=== PATIENT | male | born 1960 ===

== ENCOUNTER 2017-09-28 20:11 | Inpatient (IN) ==
[2017-09-28] MEDS ORDERED: ONDANSETRON 4 MG/2 ML VIAL IV PRN (22:54)
[2017-09-28] MEDS ORDERED: ALBUTEROL 2.5 MG/3 ML NEB RESP TX PRN (23:00)
[2017-09-28] MEDS ORDERED: guaiFENesin/CODEINE 5 ML LIQUID PO PRN (23:00)
[2017-09-28] MEDS ORDERED: LEVOFLOXACIN INJ 750 MG in PREMIX 1 EACH IV ONE (23:30)
[2017-09-28] MEDS: guaiFENesin/DM ER 600-30 MG TABLET PO SCH (23:50)
[2017-09-29] MEDS: ALBUTEROL/IPRATROPIUM 3 ML NEB RESP TX SCH ×4 (01:17→20:08)
[2017-09-29] MEDS: BENZONATATE 100 MG CAPSULE PO PRN ×2 (01:33→08:58)
[2017-09-29 03:47] LABS: Basophils % 0.2 % (0.0-0.8); Eosinophils # 0.1 10*3/uL (0.0-0.87); Eosinophils % 0.6 % (0.00-10.9); Hematocrit 31.7 VOL% (42.0-52.0); Hemoglobin 9.9 GM/DL (14.0-18.0); Immature Granulocytes % 0.5 %; Immature Granulocytes Absolute 0.04 #; Lymphocytes # 0.7 10*3/uL (1.4-4.0); Mean Corpuscular HGB Conc 31.2 GM/DL (32-36); Mean Corpuscular Hemoglobin 30 PG (27-34); Mean Corpuscular Volume 96.1 FL (87-102); Mean Platelet Volume 10.4 FL (9.6-12.0); Monocytes # 0.7 10*3/uL (0.11-0.8); Monocytes % 8.3 % (1.7-12.7); Neutrophils # 6.9 10*3/uL (1.4-7.4); Neutrophils % 82.4 % (38.7-73.9); Platelet Count 215 T/CUMM (130-400); Red Cell Distribution Width 13.9 % (9.3-17.3); White Blood Count 8.3 T/CUMM (4-12)
[2017-09-29 04:14] LABS: Albumin 2.8 G/DL (3.4-5.0); Bilirubin,Total 0.8 MG/DL (0.2-1.0); Calcium 8.3 MG/DL (8.5-10.1); Osmolality,Calculated 280.7 MOS/KG (273-304); Potassium 3.1 MMOL/L (3.5-5.1); Total Protein 8.4 G/DL (6.4-8.3)
[2017-09-29] MEDS: ACETAMINOPHEN 325 MG TABLET PO PRN ×2 (05:35→16:19)
[2017-09-29] MEDS: guaiFENesin/DM ER 600-30 MG TABLET PO SCH ×2 (08:58→20:53)
[2017-09-29] MEDS: POTASSIUM CHLORIDE 20 MEQ TABLET PO PRN ×4 (10:17→19:49)
[2017-09-29] MEDS ORDERED: GLUCAGON 1 MG VIAL IM PRN (12:04)
[2017-09-29] MEDS ORDERED: DEXTROSE 50% 25 GM/50 ML VIAL IV PRN (12:04)
[2017-09-29] MEDS: methylPREDNISolone SOD SUC 40 MG/1 ML VIAL IV SCH ×2 (13:03→23:54)
[2017-09-29] MEDS: INSULIN REGULAR 100 UNIT/ML SUBCUT SCH ×2 (16:15→20:53)
[2017-09-29] MEDS ORDERED: CALCIUM ACETATE 667 MG CAPSULE PO PRN (20:47)
[2017-09-29] MEDS: amLODIPine 5 MG TABLET PO SCH (20:59)
[2017-09-30] MEDS: ALBUTEROL/IPRATROPIUM 3 ML NEB RESP TX SCH ×4 (01:41→19:02)
[2017-09-30] MEDS: CALCIUM ACETATE 667 MG CAPSULE PO SCH ×3 (08:39→16:57)
[2017-09-30] MEDS: guaiFENesin/DM ER 600-30 MG TABLET PO SCH ×2 (08:39→21:09)
[2017-09-30] MEDS: INSULIN REGULAR 100 UNIT/ML SUBCUT SCH ×4 (08:40→21:09)
[2017-09-30] MEDS: amLODIPine 5 MG TABLET PO SCH ×2 (08:40→21:09)
[2017-09-30] MEDS: FLUCONAZOLE INJ 100 MG in IV BAG 1 EACH IV SCH (11:50)
[2017-09-30] MEDS: methylPREDNISolone SOD SUC 40 MG/1 ML VIAL IV SCH (11:53)
[2017-09-30] MEDS: BENZONATATE 100 MG CAPSULE PO PRN (21:12)
[2017-10-01] MEDS: ALBUTEROL/IPRATROPIUM 3 ML NEB RESP TX SCH ×4 (00:06→19:37)
[2017-10-01] MEDS: methylPREDNISolone SOD SUC 40 MG/1 ML VIAL IV SCH ×2 (00:26→11:30)
[2017-10-01 05:18] LABS: Basophils % 0.1 % (0.0-0.8); Hematocrit 32.9 VOL% (42.0-52.0); Hemoglobin 10.7 GM/DL (14.0-18.0); Immature Granulocytes % 2.6 %; Immature Granulocytes Absolute 0.35 #; Lymphocytes # 0.6 10*3/uL (1.4-4.0); Lymphocytes % 4.7 % (21.2-54.2); Mean Corpuscular HGB Conc 32.5 GM/DL (32-36); Mean Corpuscular Hemoglobin 30 PG (27-34); Mean Corpuscular Volume 92.4 FL (87-102); Monocytes # 0.3 10*3/uL (0.11-0.8); Monocytes % 2.6 % (1.7-12.7); NRBC # 0.03 10*3/uL; Platelet Count 323 T/CUMM (130-400); Red Blood Count 3.56 MC/CUMM (3.8-5.5); Red Cell Distribution Width 14.2 % (9.3-17.3); White Blood Count 13.3 T/CUMM (4-12)
[2017-10-01 05:40] LABS: Albumin 2.8 G/DL (3.4-5.0); Osmolality,Calculated 295.1 MOS/KG (273-304); Potassium 4.4 MMOL/L (3.5-5.1); Total Protein 8.4 G/DL (6.4-8.3)
[2017-10-01 05:55] LABS: Band Neutrophils 3 % (0-10); Hypochromasia Slight; Lymphocytes 4 % (20-55); Platelet Estimate Adequate; Segmented Neutrophils 92 % (50-85); Total Cells Counted 100
[2017-10-01] MEDS: INSULIN REGULAR 100 UNIT/ML SUBCUT SCH ×4 (09:18→21:06)
[2017-10-01] MEDS: guaiFENesin/DM ER 600-30 MG TABLET PO SCH ×2 (09:19→21:06)
[2017-10-01] MEDS: CALCIUM ACETATE 667 MG CAPSULE PO SCH ×3 (09:19→17:10)
[2017-10-01] MEDS: amLODIPine 5 MG TABLET PO SCH ×2 (09:20→21:06)
[2017-10-01] MEDS: BENZONATATE 100 MG CAPSULE PO PRN (09:20)
[2017-10-01] MEDS: FLUCONAZOLE INJ 100 MG in IV BAG 1 EACH IV SCH (10:35)
[2017-10-01] MEDS ORDERED: LEVOFLOXACIN INJ 500 MG in PREMIX 1 EACH IV SCH (21:00)
[2017-10-02] MEDS: methylPREDNISolone SOD SUC 40 MG/1 ML VIAL IV SCH ×2 (00:40→12:36)
[2017-10-02] MEDS: ALBUTEROL/IPRATROPIUM 3 ML NEB RESP TX SCH ×2 (00:56→07:33)
[2017-10-02 05:58] LABS: Basophils % 0.3 % (0.0-0.8); Hematocrit 35.2 VOL% (42.0-52.0); Hemoglobin 11.2 GM/DL (14.0-18.0); Immature Granulocytes % 7.8 %; Immature Granulocytes Absolute 0.87 #; Lymphocytes # 0.8 10*3/uL (1.4-4.0); Lymphocytes % 6.9 % (21.2-54.2); Mean Corpuscular HGB Conc 31.8 GM/DL (32-36); Mean Corpuscular Hemoglobin 30 PG (27-34); Mean Corpuscular Volume 94.1 FL (87-102); Mean Platelet Volume 9.7 FL (9.6-12.0); Monocytes # 0.4 10*3/uL (0.11-0.8); Monocytes % 3.8 % (1.7-12.7); NRBC # 0.03 10*3/uL; Neutrophils # 9.1 10*3/uL (1.4-7.4); Neutrophils % 81.2 % (38.7-73.9); Platelet Count 361 T/CUMM (130-400); Red Blood Count 3.74 MC/CUMM (3.8-5.5); Red Cell Distribution Width 14.2 % (9.3-17.3); White Blood Count 11.2 T/CUMM (4-12)
[2017-10-02 06:12] LABS: Calcium 8.7 MG/DL (8.5-10.1); Osmolality,Calculated 294.8 MOS/KG (273-304); Potassium 4.7 MMOL/L (3.5-5.1)
[2017-10-02 06:13] LABS: Calcium 8.6 MG/DL (8.5-10.1); Osmolality,Calculated 295.8 MOS/KG (273-304); Potassium 4.7 MMOL/L (3.5-5.1)
[2017-10-02 06:28] LABS: Band Neutrophils 3 % (0-10); Hypochromasia 1+; Lymphocytes 6 % (20-55); Platelet Estimate Adequate; Segmented Neutrophils 86 % (50-85); Total Cells Counted 100
[2017-10-02] MEDS: INSULIN REGULAR 100 UNIT/ML SUBCUT SCH ×2 (08:07→12:34)
[2017-10-02] MEDS ORDERED: LACTULOSE 20 GM/30 ML UDCUP PO PRN (09:17)
[2017-10-02] MEDS: CALCIUM ACETATE 667 MG CAPSULE PO SCH ×2 (10:06→12:36)
[2017-10-02] MEDS: guaiFENesin/DM ER 600-30 MG TABLET PO SCH (10:07)
[2017-10-02] MEDS: amLODIPine 5 MG TABLET PO SCH (10:07)
[2017-10-02 11:10] VITALS: BP 156/72
[2017-10-02] MEDS: FLUCONAZOLE INJ 100 MG in IV BAG 1 EACH IV SCH (12:37)
== END 2017-10-02 13:05 | disposition home or self-care (01) | DRG 871 ==
LOC: N.3E 21:26 → SUATTDRO 21:26
PROVIDERS: ADMIT Internal Medicine; ATTEND Internal Medicine Infectious Disease

== ENCOUNTER 2018-04-22 11:43 | Inpatient (IN) ==
[2018-04-22] MEDS ORDERED: ONDANSETRON 4 MG/2 ML VIAL IV STA (12:11)
[2018-04-22 12:36] LABS: Basophils # 0.1 10*3/uL (0.0-0.2); Basophils % 0.7 % (0.0-0.8); Eosinophils # 0.3 10*3/uL (0.0-0.87); Eosinophils % 3.9 % (0.00-10.9); Hematocrit 30.7 VOL% (42.0-52.0); Hemoglobin 9.6 GM/DL (14.0-18.0); Immature Granulocytes % 0.5 %; Immature Granulocytes Absolute 0.04 #; Lymphocytes # 0.6 10*3/uL (1.4-4.0); Lymphocytes % 8.2 % (21.2-54.2); Mean Corpuscular HGB Conc 31.3 GM/DL (32-36); Mean Corpuscular Hemoglobin 30 PG (27-34); Mean Corpuscular Volume 94.8 FL (87-102); Mean Platelet Volume 9.6 FL (9.6-12.0); Monocytes # 0.8 10*3/uL (0.11-0.8); Monocytes % 11.1 % (1.7-12.7); Neutrophils # 5.7 10*3/uL (1.4-7.4); Neutrophils % 75.6 % (38.7-73.9); Platelet Count 228 T/CUMM (130-400); Red Blood Count 3.24 MC/CUMM (3.8-5.5); Red Cell Distribution Width 15.3 % (9.3-17.3); White Blood Count 7.5 T/CUMM (4-12)
[2018-04-22 12:46] LABS: INR 1.1; PT Patient Result 11.9 SECS; Partial Thromboplastin Time 32.4 SECS (0-40)
[2018-04-22 12:56] LABS: ABG Base Excess 2.6 MMOL/L (-2.5-2.5); ABG HCO3 29.5 MMOL/L (20-26); ABG Oxygen Saturation 90.1 % (95-100); ABG PCO2 57.3 MM HG (35-48); ABG PH 7.329 (7.35-7.45); ABG PO2 67.5 MM HG (80-95); ABG TCO2 31.2 MMOL/L (23-27)
[2018-04-22 13:02] LABS: Alanine Aminotransferase 54 U/L (16-61); Albumin 3.1 G/DL (3.4-5.0); Alkaline Phosphatase 158 U/L (45-117); Aspartate Amino Transferase 48 U/L (0-37); Bilirubin,Total < 0.39 MG/DL (0.2-1.0); Blood Urea Nitrogen 69 MG/DL (7-18); Glucose 93 MG/DL (74-106); Osmolality,Calculated 296.5 MOS/KG (273-304); Potassium 4.8 MMOL/L (3.5-5.1); Sodium 139 MMOL/L (136-145); Total Protein 7.8 G/DL (6.4-8.3)
[2018-04-22] MEDS ORDERED: ALBUTEROL 2.5 MG/3 ML NEB RESP TX STA (13:15)
[2018-04-22] MEDS ORDERED: NITROGLYCERIN 2% OINT 1 INCH/GM PACK TOP STA (13:24)
[2018-04-22] MEDS ORDERED: PROMETHAZINE 25 MG/1 ML VIAL IM PRN (14:03)
[2018-04-22] MEDS ORDERED: DEXTROSE 50% 25 GM/50 ML VIAL IV PRN (14:03)
[2018-04-22] MEDS ORDERED: ONDANSETRON 4 MG/2 ML VIAL IV PRN (14:03)
[2018-04-22] MEDS ORDERED: GLUCAGON 1 MG VIAL IM PRN (14:03)
[2018-04-22] MEDS ORDERED: NITROGLYCERIN SL 0.4 MG TABLET SL PRN (14:06)
[2018-04-22] MEDS ORDERED: MECLIZINE 25 MG TABLET PO PRN (14:06)
[2018-04-22] MEDS ORDERED: CALCIUM ACETATE 667 MG CAPSULE PO PRN (14:06)
[2018-04-22] MEDS ORDERED: PIPERACILLIN/TAZOBACTAM 3,375 MG in SODIUM CHLORIDE 0.9% 100 ML IV STA (16:03)
[2018-04-22] MEDS: INSULIN LISPRO 100 UNIT/ML SUBCUT SCH ×2 (18:08→22:53)
[2018-04-22] MEDS: CALCIUM ACETATE 667 MG CAPSULE PO SCH (18:08)
[2018-04-22] MEDS ORDERED: VANCOMYCIN INJ 1,500 MG in SODIUM CHLORIDE 0.9% 500 ML IV ONE (20:30)
[2018-04-22] MEDS: TICAGRELOR 90 MG TABLET PO SCH (22:33)
[2018-04-22] MEDS: ATORVASTATIN 40 MG TABLET PO SCH (22:33)
[2018-04-22] MEDS: ACETAMINOPHEN 325 MG TABLET PO PRN (22:48)
[2018-04-23 04:57] LABS: Basophils # 0.1 10*3/uL (0.0-0.2); Basophils % 0.6 % (0.0-0.8); Eosinophils # 0.3 10*3/uL (0.0-0.87); Eosinophils % 3.2 % (0.00-10.9); Hematocrit 29.1 VOL% (42.0-52.0); Hemoglobin 8.9 GM/DL (14.0-18.0); Immature Granulocytes % 0.6 %; Immature Granulocytes Absolute 0.05 #; Lymphocytes # 0.7 10*3/uL (1.4-4.0); Lymphocytes % 8.2 % (21.2-54.2); Mean Corpuscular HGB Conc 30.6 GM/DL (32-36); Mean Corpuscular Hemoglobin 29 PG (27-34); Mean Corpuscular Volume 95.7 FL (87-102); Mean Platelet Volume 9.9 FL (9.6-12.0); Monocytes # 0.8 10*3/uL (0.11-0.8); Monocytes % 9.6 % (1.7-12.7); Neutrophils # 6.1 10*3/uL (1.4-7.4); Neutrophils % 77.8 % (38.7-73.9); Platelet Count 210 T/CUMM (130-400); Red Blood Count 3.04 MC/CUMM (3.8-5.5); Red Cell Distribution Width 15.4 % (9.3-17.3); White Blood Count 7.9 T/CUMM (4-12)
[2018-04-23 05:26] LABS: Albumin 2.8 G/DL (3.4-5.0); Bilirubin,Total 0.9 MG/DL (0.2-1.0); Calcium 8.1 MG/DL (8.5-10.1); Osmolality,Calculated 299.4 MOS/KG (273-304); Total Protein 7.8 G/DL (6.4-8.3)
[2018-04-23] MEDS: PIPERACILLIN/TAZOBACTAM 3,375 MG in SODIUM CHLORIDE 0.9% 100 ML IV SCH ×2 (05:48→18:08)
[2018-04-23] MEDS ORDERED: VANCOMYCIN INJ 500 MG in SODIUM CHLORIDE 0.9% 250 ML IV PRN (09:00)
[2018-04-23] MEDS: amLODIPine 10 MG TABLET PO SCH (09:25)
[2018-04-23] MEDS: ASPIRIN EC 81 MG TABLET PO SCH (09:25)
[2018-04-23] MEDS: TICAGRELOR 90 MG TABLET PO SCH ×2 (09:25→21:06)
[2018-04-23] MEDS: INSULIN LISPRO 100 UNIT/ML SUBCUT SCH ×4 (09:25→21:15)
[2018-04-23] MEDS: CALCIUM ACETATE 667 MG CAPSULE PO SCH ×3 (09:26→18:08)
[2018-04-23] MEDS: PANTOPRAZOLE 40 MG TABLET PO SCH (09:26)
[2018-04-23] MEDS: MULTIVITAMIN (CENTRUM) TABLET PO SCH (09:26)
[2018-04-23] MEDS ORDERED: VANCOMYCIN INJ 500 MG in SODIUM CHLORIDE 0.9% 100 ML IV ONE (17:00)
[2018-04-23] MEDS: guaiFENesin/DM ER 600-30 MG TABLET PO SCH ×2 (18:08→21:06)
[2018-04-23] MEDS: ATORVASTATIN 40 MG TABLET PO SCH (21:06)
[2018-04-24] MEDS: PIPERACILLIN/TAZOBACTAM 3,375 MG in SODIUM CHLORIDE 0.9% 100 ML IV SCH ×2 (05:28→18:27)
[2018-04-24] MEDS ORDERED: PROMETHAZINE 25 MG/1 ML VIAL IM ONE (07:30)
[2018-04-24] MEDS ORDERED: MEPERIDINE 50 MG/1 ML VIAL IM ONE (07:30)
[2018-04-24] MEDS ORDERED: MIDAZOLAM 2 MG/2 ML VIAL IV ONE (08:00)
[2018-04-24] MEDS ORDERED: LIDOCAINE 2% 20 ML VIAL RESP TX ONE (08:00)
[2018-04-24] MEDS ORDERED: LIDOCAINE 2% VISCOUS 100 ML BOTTLE SWISH/SPIT ONE (08:00)
[2018-04-24] MEDS ORDERED: LIDOCAINE 1% 20 ML VIAL MISC INJ ONE (08:00)
[2018-04-24] MEDS ORDERED: MIDAZOLAM 2 MG/2 ML VIAL ONE (09:05)
[2018-04-24 12:37] LABS: Basophils # 0.1 10*3/uL (0.0-0.2); Basophils % 0.8 % (0.0-0.8); Eosinophils # 0.2 10*3/uL (0.0-0.87); Eosinophils % 3.3 % (0.00-10.9); Hematocrit 31.2 VOL% (42.0-52.0); Hemoglobin 9.5 GM/DL (14.0-18.0); Immature Granulocytes Absolute 0.06 #; Lymphocytes # 1.2 10*3/uL (1.4-4.0); Lymphocytes % 19.3 % (21.2-54.2); Mean Corpuscular HGB Conc 30.4 GM/DL (32-36); Mean Corpuscular Hemoglobin 30 PG (27-34); Mean Corpuscular Volume 98.1 FL (87-102); Mean Platelet Volume 9.6 FL (9.6-12.0); Monocytes # 0.6 10*3/uL (0.11-0.8); Monocytes % 9.2 % (1.7-12.7); Neutrophils # 4.2 10*3/uL (1.4-7.4); Neutrophils % 66.4 % (38.7-73.9); Platelet Count 196 T/CUMM (130-400); Red Blood Count 3.18 MC/CUMM (3.8-5.5); Red Cell Distribution Width 15.6 % (9.3-17.3); White Blood Count 6.3 T/CUMM (4-12)
[2018-04-24 12:39] LABS: ABG Base Excess -2.4 MMOL/L (-2.5-2.5); ABG HCO3 22.3 MMOL/L (20-26); ABG Oxygen Saturation 93.6 % (95-100); ABG PCO2 67.8 MM HG (35-48); ABG PO2 87.6 MM HG (80-95); ABG TCO2 25.2 MMOL/L (23-27)
[2018-04-24 12:46] LABS: ABG PH 7.205 (7.35-7.45)
[2018-04-24] MEDS ORDERED: FLUMAZENIL 0.5 MG/5 ML VIAL IV ONE ×3 (12:53→13:03)
[2018-04-24 13:03] LABS: Albumin 2.6 G/DL (3.4-5.0); Bilirubin,Total 0.6 MG/DL (0.2-1.0); Calcium 8.2 MG/DL (8.5-10.1); Osmolality,Calculated 294.7 MOS/KG (273-304); Potassium 4.5 MMOL/L (3.5-5.1)
[2018-04-24] MEDS: INSULIN LISPRO 100 UNIT/ML SUBCUT SCH ×3 (14:53→21:41)
[2018-04-24] MEDS: CALCIUM ACETATE 667 MG CAPSULE PO SCH ×2 (14:54→18:27)
[2018-04-24] MEDS: PANTOPRAZOLE 40 MG TABLET PO SCH (16:26)
[2018-04-24] MEDS: ASPIRIN EC 81 MG TABLET PO SCH (16:26)
[2018-04-24] MEDS: TICAGRELOR 90 MG TABLET PO SCH ×2 (16:26→21:42)
[2018-04-24] MEDS: guaiFENesin/DM ER 600-30 MG TABLET PO SCH ×2 (16:29→21:42)
[2018-04-24] MEDS: MULTIVITAMIN (CENTRUM) TABLET PO SCH (16:29)
[2018-04-24] MEDS: amLODIPine 10 MG TABLET PO SCH (18:26)
[2018-04-24] MEDS: ACETAMINOPHEN 325 MG TABLET PO PRN (18:27)
[2018-04-24] MEDS ORDERED: VANCOMYCIN INJ 500 MG in SODIUM CHLORIDE 0.9% 100 ML IV ONE (21:00)
[2018-04-24] MEDS: ATORVASTATIN 40 MG TABLET PO SCH (21:42)
[2018-04-25] MEDS: ACETAMINOPHEN 325 MG TABLET PO PRN ×2 (02:06→14:55)
[2018-04-25] MEDS: PIPERACILLIN/TAZOBACTAM 3,375 MG in SODIUM CHLORIDE 0.9% 100 ML IV SCH ×2 (04:34→16:48)
[2018-04-25 07:39] LABS: Basophils % 0.5 % (0.0-0.8); Eosinophils # 0.3 10*3/uL (0.0-0.87); Eosinophils % 3.9 % (0.00-10.9); Hematocrit 33.3 VOL% (42.0-52.0); Hemoglobin 10.2 GM/DL (14.0-18.0); Immature Granulocytes % 0.6 %; Immature Granulocytes Absolute 0.04 #; Lymphocytes # 0.6 10*3/uL (1.4-4.0); Lymphocytes % 9.6 % (21.2-54.2); Mean Corpuscular HGB Conc 30.6 GM/DL (32-36); Mean Corpuscular Hemoglobin 30 PG (27-34); Mean Corpuscular Volume 96.5 FL (87-102); Mean Platelet Volume 9.4 FL (9.6-12.0); Monocytes # 0.7 10*3/uL (0.11-0.8); Monocytes % 10.2 % (1.7-12.7); Neutrophils # 4.9 10*3/uL (1.4-7.4); Neutrophils % 75.2 % (38.7-73.9); Platelet Count 204 T/CUMM (130-400); Red Blood Count 3.45 MC/CUMM (3.8-5.5); Red Cell Distribution Width 15.9 % (9.3-17.3); White Blood Count 6.5 T/CUMM (4-12)
[2018-04-25 07:47] LABS: ABG Base Excess 6.1 MMOL/L (-2.5-2.5); ABG HCO3 29.9 MMOL/L (20-26); ABG Oxygen Saturation 94.2 % (95-100); ABG PH 7.352 (7.35-7.45); ABG PO2 72.7 MM HG (80-95); ABG TCO2 30.6 MMOL/L (23-27)
[2018-04-25] MEDS ORDERED: ALBUTEROL/IPRATROPIUM 3 ML NEB RESP TX ONE (07:58)
[2018-04-25 08:02] LABS: Albumin 2.7 G/DL (3.4-5.0); Bilirubin,Total 0.6 MG/DL (0.2-1.0); Calcium 8.8 MG/DL (8.5-10.1); Osmolality,Calculated 282.5 MOS/KG (273-304); Potassium 4.4 MMOL/L (3.5-5.1); Total Protein 8.5 G/DL (6.4-8.3)
[2018-04-25] MEDS: MULTIVITAMIN (CENTRUM) TABLET PO SCH (08:14)
[2018-04-25] MEDS: TICAGRELOR 90 MG TABLET PO SCH ×2 (08:14→20:17)
[2018-04-25] MEDS: amLODIPine 10 MG TABLET PO SCH (08:14)
[2018-04-25] MEDS: guaiFENesin/DM ER 600-30 MG TABLET PO SCH ×2 (08:14→20:17)
[2018-04-25] MEDS: CALCIUM ACETATE 667 MG CAPSULE PO SCH ×3 (08:14→16:48)
[2018-04-25] MEDS: PANTOPRAZOLE 40 MG TABLET PO SCH (08:14)
[2018-04-25] MEDS: ASPIRIN EC 81 MG TABLET PO SCH (08:14)
[2018-04-25] MEDS: INSULIN LISPRO 100 UNIT/ML SUBCUT SCH ×4 (08:37→21:39)
[2018-04-25] MEDS: DORNASE ALFA 2.5 MG/2.5 ML VIAL RESP TX SCH ×2 (08:45→19:14)
[2018-04-25] MEDS: predniSONE 20 MG TABLET PO SCH (09:07)
[2018-04-25] MEDS: ALBUTEROL/IPRATROPIUM 3 ML NEB RESP TX SCH ×2 (13:32→19:14)
[2018-04-25] MEDS: ATORVASTATIN 40 MG TABLET PO SCH (20:17)
[2018-04-26] MEDS: ALBUTEROL/IPRATROPIUM 3 ML NEB RESP TX SCH ×4 (01:52→20:09)
[2018-04-26] MEDS: PIPERACILLIN/TAZOBACTAM 3,375 MG in SODIUM CHLORIDE 0.9% 100 ML IV SCH ×2 (04:36→16:03)
[2018-04-26] MEDS: DORNASE ALFA 2.5 MG/2.5 ML VIAL RESP TX SCH ×2 (07:13→20:09)
[2018-04-26] MEDS: CALCIUM ACETATE 667 MG CAPSULE PO SCH ×3 (08:09→16:55)
[2018-04-26] MEDS: PANTOPRAZOLE 40 MG TABLET PO SCH (08:09)
[2018-04-26] MEDS: MULTIVITAMIN (CENTRUM) TABLET PO SCH (08:09)
[2018-04-26] MEDS: amLODIPine 10 MG TABLET PO SCH (08:09)
[2018-04-26] MEDS: ASPIRIN EC 81 MG TABLET PO SCH (08:09)
[2018-04-26] MEDS: guaiFENesin/DM ER 600-30 MG TABLET PO SCH ×2 (08:09→22:26)
[2018-04-26] MEDS: TICAGRELOR 90 MG TABLET PO SCH ×2 (08:09→22:26)
[2018-04-26] MEDS: predniSONE 20 MG TABLET PO SCH (08:09)
[2018-04-26] MEDS: INSULIN LISPRO 100 UNIT/ML SUBCUT SCH ×4 (08:10→22:25)
[2018-04-26] MEDS ORDERED: VANCOMYCIN INJ 500 MG in SODIUM CHLORIDE 0.9% 100 ML IV ONE (17:00)
[2018-04-26] MEDS: ATORVASTATIN 40 MG TABLET PO SCH (22:26)
[2018-04-27] MEDS: ALBUTEROL/IPRATROPIUM 3 ML NEB RESP TX SCH ×4 (02:09→19:41)
[2018-04-27] MEDS: PIPERACILLIN/TAZOBACTAM 3,375 MG in SODIUM CHLORIDE 0.9% 100 ML IV SCH ×2 (05:54→16:17)
[2018-04-27] MEDS: DORNASE ALFA 2.5 MG/2.5 ML VIAL RESP TX SCH ×2 (07:26→19:41)
[2018-04-27] MEDS: predniSONE 20 MG TABLET PO SCH (08:39)
[2018-04-27] MEDS: CALCIUM ACETATE 667 MG CAPSULE PO SCH ×3 (08:39→16:15)
[2018-04-27] MEDS: TICAGRELOR 90 MG TABLET PO SCH ×2 (08:40→21:30)
[2018-04-27] MEDS: amLODIPine 10 MG TABLET PO SCH (08:40)
[2018-04-27] MEDS: INSULIN LISPRO 100 UNIT/ML SUBCUT SCH ×4 (08:40→21:35)
[2018-04-27] MEDS: MULTIVITAMIN (CENTRUM) TABLET PO SCH (08:40)
[2018-04-27] MEDS: ASPIRIN EC 81 MG TABLET PO SCH (08:40)
[2018-04-27] MEDS: PANTOPRAZOLE 40 MG TABLET PO SCH (08:40)
[2018-04-27] MEDS: guaiFENesin/DM ER 600-30 MG TABLET PO SCH ×2 (08:40→21:30)
[2018-04-27] MEDS: MECLIZINE 25 MG TABLET PO SCH ×2 (08:42→16:15)
[2018-04-27] MEDS: ATORVASTATIN 40 MG TABLET PO SCH (21:30)
[2018-04-28] MEDS: ALBUTEROL/IPRATROPIUM 3 ML NEB RESP TX SCH ×2 (01:05→07:28)
[2018-04-28] MEDS: MECLIZINE 25 MG TABLET PO SCH ×2 (03:05→08:58)
[2018-04-28] MEDS: PIPERACILLIN/TAZOBACTAM 3,375 MG in SODIUM CHLORIDE 0.9% 100 ML IV SCH (05:53)
[2018-04-28] MEDS: DORNASE ALFA 2.5 MG/2.5 ML VIAL RESP TX SCH (07:30)
[2018-04-28 08:06] VITALS: BP 154/77
[2018-04-28] MEDS: INSULIN LISPRO 100 UNIT/ML SUBCUT SCH (08:57)
[2018-04-28] MEDS: ASPIRIN EC 81 MG TABLET PO SCH (08:58)
[2018-04-28] MEDS: amLODIPine 10 MG TABLET PO SCH (08:58)
[2018-04-28] MEDS: CALCIUM ACETATE 667 MG CAPSULE PO SCH (08:58)
[2018-04-28] MEDS: MULTIVITAMIN (CENTRUM) TABLET PO SCH (08:58)
[2018-04-28] MEDS: predniSONE 20 MG TABLET PO SCH (08:58)
[2018-04-28] MEDS: PANTOPRAZOLE 40 MG TABLET PO SCH (08:59)
[2018-04-28] MEDS: guaiFENesin/DM ER 600-30 MG TABLET PO SCH (08:59)
[2018-04-28] MEDS: TICAGRELOR 90 MG TABLET PO SCH (08:59)
[2018-04-29] MEDS ORDERED: predniSONE 20 MG TABLET PO SCH (09:00)
== END 2018-04-28 11:09 | disposition home health service (06) | DRG 177 ==
LOC: N.ED 11:43 → SUATTDRO 14:03 → N.EDINP 14:03 → N.5E 16:29 → N.ICU 04-24 12:21 → N.5E 04-25 10:35
PROVIDERS: ADMIT Internal Medicine; ATTEND Internal Medicine

== ENCOUNTER 2018-09-24 00:26 | Inpatient (IN) ==
[2018-09-24] MEDS ORDERED: traZODone 50 MG TABLET PO PRN (03:11)
[2018-09-24] MEDS ORDERED: ACETAMINOPHEN 325 MG TABLET PO PRN (03:11)
[2018-09-24] MEDS ORDERED: ALBUTEROL 2.5 MG/3 ML NEB RESP TX PRN (03:11)
[2018-09-24] MEDS ORDERED: ONDANSETRON 4 MG/2 ML VIAL IV PRN (03:11)
[2018-09-24] MEDS ORDERED: NITROGLYCERIN SL 0.4 MG TABLET SL PRN (03:24)
[2018-09-24] MEDS ORDERED: MECLIZINE 25 MG TABLET PO PRN (03:24)
[2018-09-24 05:34] LABS: Basophils # 0.1 10*3/uL (0.0-0.2); Basophils % 0.9 % (0.0-0.8); Eosinophils # 0.1 10*3/uL (0.0-0.87); Eosinophils % 1.7 % (0.00-10.9); Hematocrit 34.6 VOL% (42.0-52.0); Hemoglobin 10.3 GM/DL (14.0-18.0); Immature Granulocytes % 0.9 %; Immature Granulocytes Absolute 0.06 #; Lymphocytes # 0.6 10*3/uL (1.4-4.0); Lymphocytes % 9.7 % (21.2-54.2); Mean Corpuscular HGB Conc 29.8 GM/DL (32-36); Mean Corpuscular Volume 100.3 FL (87-102); Mean Platelet Volume 8.8 FL (9.6-12.0); Monocytes % 12.5 % (1.7-12.7); NRBC # 0.02 10*3/uL; Neutrophils % 74.3 % (38.7-73.9); Platelet Count 201 T/CUMM (130-400); Red Blood Count 3.45 MC/CUMM (3.8-5.5); Red Cell Distribution Width 16.9 % (9.3-17.3); White Blood Count 6.6 T/CUMM (4-12)
[2018-09-24 05:57] LABS: Calcium 9.1 MG/DL (8.5-10.1); Osmolality,Calculated 282.7 MOS/KG (273-304)
[2018-09-24] MEDS: TICAGRELOR 90 MG TABLET PO SCH ×2 (08:17→21:29)
[2018-09-24 08:33] LABS: INR 1.1; PT Patient Result 11.5 SECS
[2018-09-24] MEDS: DOCUSATE SODIUM 100 MG CAPSULE PO SCH ×2 (09:59→21:29)
[2018-09-24] MEDS: PANTOPRAZOLE 40 MG TABLET PO SCH (09:59)
[2018-09-24] MEDS: amLODIPine 10 MG TABLET PO SCH (09:59)
[2018-09-24] MEDS: ASPIRIN EC 81 MG TABLET PO SCH (10:00)
[2018-09-24] MEDS: ATORVASTATIN 40 MG TABLET PO SCH (21:29)
[2018-09-25 04:48] LABS: Osmolality,Calculated 287.5 MOS/KG (273-304)
[2018-09-25 05:24] LABS: Basophils # 0.1 10*3/uL (0.0-0.2); Basophils % 0.7 % (0.0-0.8); Eosinophils # 0.1 10*3/uL (0.0-0.87); Eosinophils % 1.6 % (0.00-10.9); Hematocrit 33.1 VOL% (42.0-52.0); Immature Granulocytes % 1.1 %; Immature Granulocytes Absolute 0.08 #; Lymphocytes # 0.8 10*3/uL (1.4-4.0); Lymphocytes % 11.1 % (21.2-54.2); Mean Corpuscular HGB Conc 30.2 GM/DL (32-36); Mean Corpuscular Volume 99.4 FL (87-102); Mean Platelet Volume 9.6 FL (9.6-12.0); Monocytes % 14.5 % (1.7-12.7); Platelet Count 206 T/CUMM (130-400); Red Blood Count 3.33 MC/CUMM (3.8-5.5); Red Cell Distribution Width 16.6 % (9.3-17.3); White Blood Count 7.5 T/CUMM (4-12)
[2018-09-25] MEDS: TICAGRELOR 90 MG TABLET PO SCH ×2 (09:25→20:43)
[2018-09-25] MEDS: amLODIPine 10 MG TABLET PO SCH (09:25)
[2018-09-25] MEDS: ASPIRIN EC 81 MG TABLET PO SCH (09:25)
[2018-09-25] MEDS: DOCUSATE SODIUM 100 MG CAPSULE PO SCH ×2 (09:26→20:43)
[2018-09-25] MEDS: PANTOPRAZOLE 40 MG TABLET PO SCH (09:26)
[2018-09-25] MEDS: ATORVASTATIN 40 MG TABLET PO SCH (20:43)
[2018-09-26] MEDS: BISACODYL 10 MG SUPP RECTAL ONE ×2 (01:45→05:46)
[2018-09-26 06:20] LABS: Basophils # 0.1 10*3/uL (0.0-0.2); Basophils % 0.9 % (0.0-0.8); Eosinophils # 0.2 10*3/uL (0.0-0.87); Eosinophils % 3.3 % (0.00-10.9); Hematocrit 33.7 VOL% (42.0-52.0); Immature Granulocytes Absolute 0.07 #; Lymphocytes # 0.8 10*3/uL (1.4-4.0); Mean Corpuscular HGB Conc 29.7 GM/DL (32-36); Mean Corpuscular Volume 101.5 FL (87-102); Mean Platelet Volume 9.4 FL (9.6-12.0); Neutrophils % 67.8 % (38.7-73.9); Platelet Count 201 T/CUMM (130-400); Red Blood Count 3.32 MC/CUMM (3.8-5.5); Red Cell Distribution Width 16.8 % (9.3-17.3); White Blood Count 6.9 T/CUMM (4-12)
[2018-09-26 06:21] LABS: Calcium 8.8 MG/DL (8.5-10.1); Osmolality,Calculated 285.4 MOS/KG (273-304)
[2018-09-26 06:41] LABS: Anisocytosis 2+; Eosinophils 2 % (0-10); Lymphocytes 15 % (20-55); Macrocytosis 2+; Platelet Estimate Normal; Segmented Neutrophils 67 % (50-85); Total Cells Counted 100
[2018-09-26] MEDS ORDERED: MAGNESIUM CITRATE 300 ML BOTTLE PO ONE (08:37)
[2018-09-26] MEDS ORDERED: SODIUM PHOSPHATE ENEMA 133 ML BOTTLE RECTAL PRN (08:37)
[2018-09-26] MEDS: amLODIPine 10 MG TABLET PO SCH (09:07)
[2018-09-26] MEDS: TICAGRELOR 90 MG TABLET PO SCH ×2 (09:07→20:44)
[2018-09-26] MEDS: ASPIRIN EC 81 MG TABLET PO SCH (09:07)
[2018-09-26] MEDS: DOCUSATE SODIUM 100 MG CAPSULE PO SCH ×2 (09:07→20:44)
[2018-09-26] MEDS: PANTOPRAZOLE 40 MG TABLET PO SCH (09:08)
[2018-09-26] MEDS ORDERED: MAGNESIUM HYDROXIDE SUSP 30 ML UDCUP PO PRN (15:02)
[2018-09-26] MEDS: ATORVASTATIN 40 MG TABLET PO SCH (20:47)
[2018-09-27 06:57] LABS: Basophils % 0.6 % (0.0-0.8); Eosinophils # 0.2 10*3/uL (0.0-0.87); Eosinophils % 2.7 % (0.00-10.9); Hematocrit 33.2 VOL% (42.0-52.0); Hemoglobin 10.1 GM/DL (14.0-18.0); Immature Granulocytes % 0.9 %; Immature Granulocytes Absolute 0.06 #; Lymphocytes # 0.4 10*3/uL (1.4-4.0); Lymphocytes % 5.3 % (21.2-54.2); Mean Corpuscular HGB Conc 30.4 GM/DL (32-36); Mean Corpuscular Volume 99.7 FL (87-102); Mean Platelet Volume 9.3 FL (9.6-12.0); Neutrophils % 81.5 % (38.7-73.9); Platelet Count 205 T/CUMM (130-400); Red Blood Count 3.33 MC/CUMM (3.8-5.5); Red Cell Distribution Width 16.5 % (9.3-17.3)
[2018-09-27 07:20] LABS: Calcium 9.2 MG/DL (8.5-10.1); Osmolality,Calculated 287.8 MOS/KG (273-304)
[2018-09-27] MEDS ORDERED: MAGNESIUM CITRATE 300 ML BOTTLE PO ONE (09:00)
[2018-09-27] MEDS: ASPIRIN EC 81 MG TABLET PO SCH (10:46)
[2018-09-27] MEDS: amLODIPine 10 MG TABLET PO SCH (10:46)
[2018-09-27] MEDS: PANTOPRAZOLE 40 MG TABLET PO SCH (10:46)
[2018-09-27] MEDS: TICAGRELOR 90 MG TABLET PO SCH (10:46)
[2018-09-27] MEDS: DOCUSATE SODIUM 100 MG CAPSULE PO SCH (10:46)
[2018-09-27 11:36] VITALS: BP 149/78
== END 2018-09-27 17:30 | disposition home or self-care (01) | DRG 291 ==
LOC: N.CC 01:53 → INTOOBSV 01:53 → SUATTDRO 03:10 → N.2E 17:05
PROVIDERS: ADMIT Internal Medicine; ATTEND Internal Medicine

== ENCOUNTER 2019-04-22 12:01 | Inpatient (IN) ==
[2019-04-22] MEDS ORDERED: VANCOMYCIN INJ 500 MG in SODIUM CHLORIDE 0.9% 100 ML IV PRN (14:40)
[2019-04-22 14:46] LABS: ABG Base Excess 2.1 MMOL/L (-2.5-2.5); ABG Oxygen Saturation 82.5 % (95-100); ABG PH 7.237 (7.35-7.45); ABG PO2 56.6 MM HG (80-95); ABG TCO2 29.4 MMOL/L (23-27); Allen Test Positive
[2019-04-22 14:47] LABS: ABG PCO2 74.1 MM HG (35-48)
[2019-04-22] MEDS ORDERED: LORazepam 2 MG/1 ML VIAL ONE (15:04)
[2019-04-22] MEDS ORDERED: LORazepam 2 MG/1 ML VIAL IV ONE (15:22)
[2019-04-22 15:23] LABS: Basophils % 0.2 % (0.0-0.8); Eosinophils % 0.2 % (0.00-10.9); Hematocrit 32.1 VOL% (42.0-52.0); Hemoglobin 9.5 GM/DL (14.0-18.0); Immature Granulocytes % 0.5 %; Immature Granulocytes Absolute 0.03 #; Lymphocytes # 0.1 10*3/uL (1.4-4.0); Lymphocytes % 1.2 % (21.2-54.2); Mean Corpuscular HGB Conc 29.6 GM/DL (32-36); Mean Corpuscular Volume 96.4 FL (87-102); Mean Platelet Volume 11.3 FL (9.6-12.0); Monocytes % 1.1 % (1.7-12.7); Neutrophils % 96.8 % (38.7-73.9); Platelet Count 108 T/CUMM (130-400); Red Blood Count 3.33 MC/CUMM (3.8-5.5); White Blood Count 5.7 T/CUMM (4-12)
[2019-04-22] MEDS ORDERED: VANCOMYCIN INJ 1,250 MG in SODIUM CHLORIDE 0.9% 250 ML IV ONE (15:30)
[2019-04-22] MEDS ORDERED: methylPREDNISolone SOD SUC 40 MG/1 ML VIAL IV ONE (15:30)
[2019-04-22 15:35] LABS: Albumin 1.6 G/DL (3.4-5.0); Bilirubin,Total 0.5 MG/DL (0.2-1.0); Calcium 8.1 MG/DL (8.5-10.1); Osmolality,Calculated 294.4 MOS/KG (273-304); Total Protein 6.3 G/DL (6.4-8.3)
[2019-04-22 15:52] LABS: Band Neutrophils 11 % (0-10); Burr Cells Few; Eosinophils 1 % (0-10); Hypochromasia Slight; Lymphocytes 2 % (20-55); Nucleated Red Blood Cells 1 (0-5); Platelet Estimate Adequate; Segmented Neutrophils 84 % (50-85); Total Cells Counted 100
[2019-04-22] MEDS: PIPERACILLIN/TAZOBACTAM 3,375 MG in SODIUM CHLORIDE 0.9% 100 ML IV SCH (16:08)
[2019-04-22] MEDS ORDERED: DEXTROSE 10% 25 GM/250 ML BAG IV PRN (16:26)
[2019-04-23] MEDS: LORazepam 2 MG/1 ML VIAL IV PRN ×3 (00:09→22:38)
[2019-04-23 04:30] LABS: ABG Base Excess -1.9 MMOL/L (-2.5-2.5); ABG HCO3 28.2 MMOL/L (20-26); ABG PO2 60.8 MM HG (80-95); ABG TCO2 30.7 MMOL/L (23-27); Allen Test Positive; Pt O2 Delivery Device BIPAP
[2019-04-23 04:32] LABS: ABG PH 7.152 (7.35-7.45)
[2019-04-23 04:33] LABS: ABG PCO2 82.4 MM HG (35-48)
[2019-04-23] MEDS: PIPERACILLIN/TAZOBACTAM 3,375 MG in SODIUM CHLORIDE 0.9% 100 ML IV SCH ×2 (05:12→16:50)
[2019-04-23] MEDS: methylPREDNISolone SOD SUC 40 MG/1 ML VIAL IV SCH ×2 (05:15→16:46)
[2019-04-23] MEDS ORDERED: POTASSIUM CHLORIDE RIDER 10 MEQ in PREMIX 1 EACH IV ONE (09:47)
[2019-04-23] MEDS ORDERED: POTASSIUM CHLORIDE RIDER 20 MEQ in PREMIX 1 EACH IV ONE (09:47)
[2019-04-23 10:06] LABS: ABG Base Excess -3.7 MMOL/L (-2.5-2.5); ABG HCO3 21.1 MMOL/L (20-26); ABG PO2 61.5 MM HG (80-95); ABG TCO2 25.8 MMOL/L (23-27); Allen Test Positive; Pt O2 Delivery Device BIPAP
[2019-04-23 10:09] LABS: ABG PH 7.143 (7.35-7.45)
[2019-04-23 10:10] LABS: ABG PCO2 79.3 MM HG (35-48)
[2019-04-23] MEDS: ALBUTEROL/IPRATROPIUM 3 ML NEB RESP TX SCH ×4 (12:15→22:42)
[2019-04-23] MEDS ORDERED: VANCOMYCIN INJ 500 MG in SODIUM CHLORIDE 0.9% 100 ML IV ONE (17:00)
[2019-04-24] MEDS ORDERED: LORazepam 2 MG/1 ML VIAL ONE (01:59)
[2019-04-24] MEDS: PIPERACILLIN/TAZOBACTAM 3,375 MG in SODIUM CHLORIDE 0.9% 100 ML IV SCH ×2 (02:09→16:11)
[2019-04-24] MEDS: LORazepam 2 MG/1 ML VIAL IV PRN ×4 (02:10→22:58)
[2019-04-24] MEDS: ALBUTEROL/IPRATROPIUM 3 ML NEB RESP TX SCH ×6 (02:29→23:54)
[2019-04-24] MEDS ORDERED: predniSONE 20 MG TABLET PO SCH (09:00)
[2019-04-24] MEDS ORDERED: LORazepam 2 MG/1 ML VIAL IV PRN ×2 (13:54→22:48)
[2019-04-25] MEDS: PIPERACILLIN/TAZOBACTAM 3,375 MG in SODIUM CHLORIDE 0.9% 100 ML IV SCH (02:15)
[2019-04-25] MEDS: ALBUTEROL/IPRATROPIUM 3 ML NEB RESP TX SCH ×2 (03:56→08:10)
[2019-04-25] MEDS: LORazepam 2 MG/1 ML VIAL IV PRN (04:42)
[2019-04-25 05:16] VITALS: BP 79/27
== END 2019-04-25 06:45 | disposition expired | DRG 193 ==
LOC: SUATTDRO 14:06 → N.ICU 14:06 → N.5E 04-23 20:16
PROVIDERS: ADMIT Internal Medicine; ATTEND Internal Medicine